=== PATIENT | female | born 1945 | race Caucasian/White ===

== ENCOUNTER 2017-04-23 20:37 | Emergency (ER) | payer OTHER ==
[~2017-04-23] VITALS: Ht 142.2 cm; Wt 40.4 kg
[~2017-04-23 20:37] MED LIST changes: -AEROECLIPSE II1 EACH INH; -ALBU3IS INH; -ALLERGY CREAM30 GM TOP; -CETI5 PO; -GLIP5 PO; -HYDHCL25 PO; -Prednisone20 MG PO; -Zofran Odt4 MG PO
[2017-04-23] MEDS ORDERED: GLIP5 PO (20:57)
[2017-04-23] MEDS ORDERED: METF500 PO (20:58)
[2017-04-23 21:13] LABS: BASOPHILS ABSOLUTE AUTO 0.08 K/mm3 (0.00-0.23); BASOPHILS PERCENT AUTO 1 % (0-2); EOSINOPHILS ABSOLUTE AUTO 0.25 K/mm3 (0.00-0.68); EOSINOPHILS PERCENT AUTO 3 % (0-6); Hematocrit 32.7 % (33.0-51.0); Hemoglobin 10.9 g/dL (11.5-16.0); IMMATURE GRAN ABSOLUTE AUTO 0.05 K/mm3 (0.00-0.10); IMMATURE GRAN PERCENT AUTO 1 % (0-1); LYMPHOCYTES ABSOLUTE AUTO 2.77 K/mm3 (0.84-5.20); LYMPHOCYTES PERCENT AUTO 29 % (21-46); MONOCYTES ABSOLUTE AUTO 0.69 K/mm3 (0.16-1.47); MONOCYTES PERCENT AUTO 7 % (4-13); Mean Corpuscular HGB 31.3 pg (26.0-34.0); Mean Corpuscular HGB Conc 33.3 g/dL (31.5-36.5); Mean Corpuscular Volume 94 fL (80-100); NEUTROPHILS ABSOLUTE AUTO 5.81 K/mm3 (1.96-9.15); NEUTROPHILS PERCENT AUTO 60 % (41-73); RDW Coefficient Variation 13.1 % (11.7-14.2); RDW Standard Deviation 45.1 fL (35.1-46.3); Red Blood Cell Count 3.48 M/mm3 (3.80-5.20); White Blood Cell Count 9.65 K/mm3 (4.00-11.30)
[2017-04-23 21:18] LABS: Mean Platelet Volume 9.6 fL (9.1-12.4); Platelet Count 272 K/mm3 (150-400)
[2017-04-23 21:27] LABS: Alanine Aminotransfer (ALT/SGP 17 U/L (12-78); Albumin, Blood 3.2 g/dL (3.4-5.0); Albumin/Globulin Ratio 0.9 (0.8-1.8); Alk Phos 117 U/L (50-136); Anion Gap 8 mmol/L (6-16); Aspartate Aminotrans (AST/SGOT 10 U/L (12-37); Bilirubin, Total 0.2 mg/dL (0.1-1.0); Blood Urea Nitrogen 16 mg/dL (8-24); Bun/Creatinine Ratio 28.6 (12.0-20.0); CO2, Blood 30 mmol/L (21-32); Calcium, Blood 8.4 mg/dL (8.5-10.1); Chloride, Blood 100 mmol/L (98-108); Creatinine, Blood 0.56 mg/dL (0.40-1.00); Globulin, Blood 3.5 g/dL (2.2-4.0); Glomerular Filtration Rate >60 (60-); Glucose, Blood 333 mg/dL (70-99); Potassium, Blood 3.9 mmol/L (3.5-5.5); Sodium, Blood 138 mmol/L (136-145); Total Protein, Blood 6.7 g/dL (6.4-8.2)
[2017-04-23] MEDS ORDERED: Zofran Odt4 MG PO (22:17)
[2018-01-11] MEDS ORDERED: ALBU3IS INH (23:14)
[2018-01-11] MEDS ORDERED: Prednisone20 MG PO (23:14)
[2018-01-11] MEDS ORDERED: AEROECLIPSE II1 EACH INH (23:14)
== END 2017-04-23 23:01 | disposition home or self-care (01) ==
LOC: ER 20:37
PROVIDERS: Emergency Medicine
DX: R11.2 Nausea with vomiting, unspecified (principal); R19.7 Diarrhea, unspecified; R10.9 Unspecified abdominal pain; E11.40 Type 2 diabetes mellitus with diabetic neuropathy, unspecified; F32.9 Major depressive disorder, single episode, unspecified; J44.9 Chronic obstructive pulmonary disease, unspecified; F17.200 Nicotine dependence, unspecified, uncomplicated; Z88.5 Allergy status to narcotic agent; Z88.8 Allergy status to other drugs, medicaments and biological substances; Z88.0 Allergy status to penicillin; Z79.899 Other long term (current) drug therapy; Z79.84 Long term (current) use of oral hypoglycemic drugs; Z90.49 Acquired absence of other specified parts of digestive tract
CPT/HCPCS: 36415; 74018; 80053; 83690; 85025; 96361; 96374; 99283; J2405; J7030

== ENCOUNTER → 2017-04-23 | Outpatient (CLI) | payer OTHER ==
[~2017-04-23] MED LIST: ACET325 PO; AEROECLIPSE II1 EACH INH; ALBU3IS INH; ALBU90OI INH; ALBU90OI6 INH; ALBU90OI61 INH; ALEN70 PO; ALLERGY CREAM30 GM TOP; AMLO5 PO; AMOX500 PO; ASPI81CH; ASPI81CH PO; ATOR10; AVANDIA 8 MG QD; AZIT250 PO; BISA10S PR; BISM87SU; BISMATROL; BONIVA; Boniva150 MG; CALC1.25T PO; CALCIUM + D3 E1 EACH PO; CEFP200 PO; CEPH500 PO; CETI5 PO; CHOL10002 PO; CIPR500 PO; CITA20 PO; CYCL10 PO; Citrate Of Mag300 ML PO; Cleocin HCl150 MG PO; Combigan Eye Dro5 ML; Combigan Eye Dro5 ML OP; DIPATR PO; DOCU100 PO; Dulcolax5 MG PO; FERR325 PO; FURO20 PO; GABA100 PO; GABA600 PO; GENPREOPSU; GENTEAL; GLIP5 PO; HYDACE5; HYDACE5 PO; HYDHCL25 PO; HYDMETSO; HYDMETSO BOTHEYES; HYDMOR2 PO; HYDR1TAB94 PO; Humalog100 UNIT/1; Humalog100 UNIT/1 SC; INS70/30PN; INSDET100; INSDET100 SC; INSDET100 SQ; INSLI75/25; INSLIS75I; INSN100I; INSU7030P; INSUASPI SC; INSUASPI SS; LAVAP17G PO; LEVAMIR INSULIN SQ; LEVFLO250 PO; LEVFLO500 PO; LISI5 PO; LOPE2C PO; LORA.5 PO; Lisinopril2.5 MG; METF500 PO; METF500C PO; MIRT15 PO; MOM PO; MORP20L PO; Milk Of Ma400 MG/5 M PO; Miralax17 GM PO; NORT10 PO; NORT50; NORT50 PO; Norco 5-325 Ta1 EACH PO; ONDA4ODT MM; ONDA4ODT SL; ONDA8 PO; OXYACE5T PO; OXYC5 PO; PHENA200 PO; POTA8 PO; PRAM.5 PO; PRAV20; PRAV20 PO; PRAV40 PO; PRAVASTATIN SOD10 MG PO; PROC10 PO; Prednisone20 MG PO; ROPI1 PO; RXHYD5325 PO; SENN187 PO; SIMV20; SIMV40 PO; SKIEMOTL12; SPIRIVA RESPIMAT4 GM IH; SULF10OPSA OU; SULTRIDS; SULTRIDS PO; TIMDOROPSO; TOBR.3OPSO OP; TRAACE; TRAM50; TRAV.004OP; Tylenol325 MG PO; VITAMIN D32000 UNIT PO; Ventolin5 MG/1 ML IH; Zofran Odt4 MG PO; Zofran Odt4 MG SL; [UNRECOGNIZED DRUG - OTHER]; [UNRECOGNIZED DRUG - REMARK]
[2017-04-23 12:55] LABS: BASOPHILS ABSOLUTE AUTO 0.09 K/mm3 (0.00-0.23); BASOPHILS PERCENT AUTO 1 % (0-2); EOSINOPHILS ABSOLUTE AUTO 0.34 K/mm3 (0.00-0.68); EOSINOPHILS PERCENT AUTO 3 % (0-6); Hematocrit 35.8 % (33.0-51.0); Hemoglobin 12.1 g/dL (11.5-16.0); IMMATURE GRAN ABSOLUTE AUTO 0.07 K/mm3 (0.00-0.10); IMMATURE GRAN PERCENT AUTO 1 % (0-1); LYMPHOCYTES ABSOLUTE AUTO 3.47 K/mm3 (0.84-5.20); LYMPHOCYTES PERCENT AUTO 30 % (21-46); MONOCYTES ABSOLUTE AUTO 0.71 K/mm3 (0.16-1.47); MONOCYTES PERCENT AUTO 6 % (4-13); Mean Corpuscular HGB 31.5 pg (26.0-34.0); Mean Corpuscular HGB Conc 33.8 g/dL (31.5-36.5); Mean Corpuscular Volume 93 fL (80-100); Mean Platelet Volume 9.7 fL (9.1-12.4); NEUTROPHILS ABSOLUTE AUTO 6.92 K/mm3 (1.96-9.15); NEUTROPHILS PERCENT AUTO 60 % (41-73); Platelet Count 370 K/mm3 (150-400); RDW Coefficient Variation 13.2 % (11.7-14.2); RDW Standard Deviation 45.1 fL (35.1-46.3); Red Blood Cell Count 3.84 M/mm3 (3.80-5.20)
== END | disposition home or self-care (01) ==
LOC: LAB EV 12:47
PROVIDERS: Physician Assistant
DX: R21 Rash and other nonspecific skin eruption (principal)
CPT/HCPCS: 85025

== ENCOUNTER 2017-05-11 00:06 | Emergency (ER) | payer OTHER ==
[~2017-05-11] VITALS: Ht 144.8 cm; Wt 38.1 kg
[~2017-05-11 00:06] MED LIST changes: +GLIP5 PO; +Zofran Odt4 MG PO
[2018-01-11] MEDS ORDERED: Prednisone20 MG PO (23:14)
[2018-01-11] MEDS ORDERED: ALBU3IS INH (23:14)
[2018-01-11] MEDS ORDERED: AEROECLIPSE II1 EACH INH (23:14)
== END 2017-05-11 01:11 | disposition home or self-care (01) ==
LOC: ER 00:06
DX: S50.11XA Contusion of right forearm, initial encounter (principal); I10 Essential (primary) hypertension; E11.42 Type 2 diabetes mellitus with diabetic polyneuropathy; F32.9 Major depressive disorder, single episode, unspecified; R62.50 Unspecified lack of expected normal physiological development in childhood; G25.81 Restless legs syndrome; J44.9 Chronic obstructive pulmonary disease, unspecified; Z98.42 Cataract extraction status, left eye; Z98.41 Cataract extraction status, right eye; Z90.49 Acquired absence of other specified parts of digestive tract; Z88.5 Allergy status to narcotic agent; Z88.0 Allergy status to penicillin; Z88.8 Allergy status to other drugs, medicaments and biological substances; Z79.899 Other long term (current) drug therapy; Z79.4 Long term (current) use of insulin; W22.8XXA Striking against or struck by other objects, initial encounter
CPT/HCPCS: 73080; 73090; 99283

== ENCOUNTER 2017-11-20 10:41 | Emergency (ER) | payer OTHER ==
[~2017-11-20] VITALS: Ht 157.5 cm; Wt 44.5 kg
[2017-11-20 13:01] LABS: BASOPHILS ABSOLUTE AUTO 0.08 K/mm3 (0.00-0.23); BASOPHILS PERCENT AUTO 1 % (0-2); EOSINOPHILS ABSOLUTE AUTO 0.61 K/mm3 (0.00-0.68); EOSINOPHILS PERCENT AUTO 7 % (0-6); Hematocrit 32.5 % (33.0-51.0); Hemoglobin 10.6 g/dL (11.5-16.0); IMMATURE GRAN ABSOLUTE AUTO 0.04 K/mm3 (0.00-0.10); IMMATURE GRAN PERCENT AUTO 0 % (0-1); LYMPHOCYTES PERCENT AUTO 28 % (21-46); MONOCYTES ABSOLUTE AUTO 0.68 K/mm3 (0.16-1.47); MONOCYTES PERCENT AUTO 8 % (4-13); Mean Corpuscular HGB 31.3 pg (26.0-34.0); Mean Corpuscular HGB Conc 32.6 g/dL (31.5-36.5); Mean Corpuscular Volume 96 fL (80-100); Mean Platelet Volume 9.9 fL (9.1-12.4); NEUTROPHILS ABSOLUTE AUTO 5.18 K/mm3 (1.96-9.15); NEUTROPHILS PERCENT AUTO 57 % (41-73); Platelet Count 276 K/mm3 (150-400); RDW Coefficient Variation 13.2 % (11.7-14.2); RDW Standard Deviation 46.7 fL (35.1-46.3); Red Blood Cell Count 3.39 M/mm3 (3.80-5.20); White Blood Cell Count 9.09 K/mm3 (4.00-11.30)
[2017-11-20 13:19] LABS: Alanine Aminotransfer (ALT/SGP 18 U/L (12-78); Albumin, Blood 2.9 g/dL (3.4-5.0); Albumin/Globulin Ratio 0.8 (0.8-1.8); Alk Phos 65 U/L (50-136); Anion Gap 5 mmol/L (6-16); Aspartate Aminotrans (AST/SGOT 16 U/L (12-37); Bilirubin, Total 0.2 mg/dL (0.1-1.0); Blood Urea Nitrogen 13 mg/dL (8-24); Bun/Creatinine Ratio 22.1 (12.0-20.0); CO2, Blood 32 mmol/L (21-32); Calcium, Blood 8.4 mg/dL (8.5-10.1); Chloride, Blood 104 mmol/L (98-108); Creatinine, Blood 0.59 mg/dL (0.40-1.00); Globulin, Blood 3.7 g/dL (2.2-4.0); Glomerular Filtration Rate >60 (60-); Glucose, Blood 102 mg/dL (70-99); Potassium, Blood 4.1 mmol/L (3.5-5.5); Sodium, Blood 141 mmol/L (136-145); Total Protein, Blood 6.6 g/dL (6.4-8.2)
[2017-11-20] MEDS ORDERED: HYDHCL25 PO (14:57)
[2017-11-20] MEDS ORDERED: ALLERGY CREAM30 GM TOP (14:57)
== END 2017-11-20 15:41 | disposition home or self-care (01) ==
LOC: ER 10:41
PROVIDERS: Physician Assistant
DX: S30.810A Abrasion of lower back and pelvis, initial encounter (principal); S80.211A Abrasion, right knee, initial encounter; S70.312A Abrasion, left thigh, initial encounter; L03.317 Cellulitis of buttock; L03.116 Cellulitis of left lower limb; L03.115 Cellulitis of right lower limb; E11.40 Type 2 diabetes mellitus with diabetic neuropathy, unspecified; F32.9 Major depressive disorder, single episode, unspecified; J44.9 Chronic obstructive pulmonary disease, unspecified; Z88.5 Allergy status to narcotic agent; Z88.6 Allergy status to analgesic agent; Z88.0 Allergy status to penicillin; Z88.8 Allergy status to other drugs, medicaments and biological substances; Z79.899 Other long term (current) drug therapy; Z79.51 Long term (current) use of inhaled steroids; Z79.84 Long term (current) use of oral hypoglycemic drugs; Z87.891 Personal history of nicotine dependence; X58.XXXA Exposure to other specified factors, initial encounter
CPT/HCPCS: 36415; 72192; 80053; 83735; 85025; 99284-25

== ENCOUNTER 2017-12-19 18:26 | Emergency (ER) | payer OTHER ==
[~2017-12-19] VITALS: Ht 144.8 cm; Wt 36.6 kg
[~2017-12-19 18:26] MED LIST changes: +ALLERGY CREAM30 GM TOP; +HYDHCL25 PO
[2017-12-19] MEDS ORDERED: CETI5 PO (19:09)
== END 2017-12-19 21:55 | disposition home or self-care (01) ==
LOC: ER 18:26
DX: L25.9 Unspecified contact dermatitis, unspecified cause (principal); Z88.5 Allergy status to narcotic agent; Z88.8 Allergy status to other drugs, medicaments and biological substances; Z88.0 Allergy status to penicillin; Z79.899 Other long term (current) drug therapy; Z79.84 Long term (current) use of oral hypoglycemic drugs; E11.42 Type 2 diabetes mellitus with diabetic polyneuropathy; J44.9 Chronic obstructive pulmonary disease, unspecified; Z87.891 Personal history of nicotine dependence
CPT/HCPCS: 99283

== ENCOUNTER 2018-06-15 17:42 | Emergency (ER) | payer OTHER ==
[~2018-06-15] VITALS: Ht 144.8 cm; Wt 40.8 kg
[~2018-06-15 17:42] MED LIST changes: +AEROECLIPSE II1 EACH INH; +ALBU3IS INH; +CETI5 PO; +Prednisone20 MG PO
== END 2018-06-15 21:37 | disposition home or self-care (01) ==
LOC: ER 17:42
DX: S20.211A Contusion of right front wall of thorax, initial encounter (principal); X50.9XXA Other and unspecified overexertion or strenuous movements or postures, initial encounter; Z88.5 Allergy status to narcotic agent; Z88.8 Allergy status to other drugs, medicaments and biological substances; Z88.0 Allergy status to penicillin; Z79.899 Other long term (current) drug therapy; Z79.84 Long term (current) use of oral hypoglycemic drugs; Z79.52 Long term (current) use of systemic steroids; E11.9 Type 2 diabetes mellitus without complications; F32.9 Major depressive disorder, single episode, unspecified; J44.9 Chronic obstructive pulmonary disease, unspecified; Z87.891 Personal history of nicotine dependence
CPT/HCPCS: 71046; 99283-25

== ENCOUNTER 2018-08-27 22:12 | Emergency (ER) | payer OTHER ==
[~2018-08-27] VITALS: Ht 144.8 cm; Wt 40.8 kg
[~2018-08-27 22:12] MED LIST changes: -Combigan Eye Dro5 ML; +Combigan Eye Dro5 ML RIGHTEYE
[2018-08-27 23:33] LABS: BASOPHILS ABSOLUTE AUTO 0.03 K/mm3 (0.00-0.23); BASOPHILS PERCENT AUTO 0 % (0-2); EOSINOPHILS ABSOLUTE AUTO 0.36 K/mm3 (0.00-0.68); EOSINOPHILS PERCENT AUTO 5 % (0-6); Hematocrit 33.3 % (33.0-51.0); Hemoglobin 10.7 g/dL (11.5-16.0); IMMATURE GRAN ABSOLUTE AUTO 0.04 K/mm3 (0.00-0.10); IMMATURE GRAN PERCENT AUTO 1 % (0-1); LYMPHOCYTES ABSOLUTE AUTO 2.93 K/mm3 (0.84-5.20); LYMPHOCYTES PERCENT AUTO 39 % (21-46); MONOCYTES ABSOLUTE AUTO 0.61 K/mm3 (0.16-1.47); MONOCYTES PERCENT AUTO 8 % (4-13); Mean Corpuscular HGB 31.4 pg (26.0-34.0); Mean Corpuscular HGB Conc 32.1 g/dL (31.5-36.5); Mean Corpuscular Volume 98 fL (80-100); Mean Platelet Volume 9.6 fL (9.1-12.4); NEUTROPHILS ABSOLUTE AUTO 3.65 K/mm3 (1.96-9.15); NEUTROPHILS PERCENT AUTO 48 % (41-73); Platelet Count 252 K/mm3 (150-400); RDW Coefficient Variation 13.3 % (11.7-14.2); RDW Standard Deviation 47.3 fL (35.1-46.3); Red Blood Cell Count 3.41 M/mm3 (3.80-5.20); White Blood Cell Count 7.62 K/mm3 (4.00-11.30)
[2018-08-27 23:51] LABS: Alanine Aminotransfer (ALT/SGP 24 U/L (12-78); Albumin, Blood 3.4 g/dL (3.4-5.0); Alk Phos 80 U/L (50-136); Anion Gap 5 mmol/L (6-16); Aspartate Aminotrans (AST/SGOT 15 U/L (12-37); Bilirubin, Total 0.1 mg/dL (0.1-1.0); Blood Urea Nitrogen 15 mg/dL (8-24); Bun/Creatinine Ratio 22.2 (12.0-20.0); CO2, Blood 32 mmol/L (21-32); Calcium, Blood 8.6 mg/dL (8.5-10.1); Chloride, Blood 106 mmol/L (98-108); Creatinine, Blood 0.68 mg/dL (0.40-1.00); Globulin, Blood 3.3 g/dL (2.2-4.0); Glomerular Filtration Rate >60 (60-); Glucose, Blood 141 mg/dL (70-99); Potassium, Blood 4.4 mmol/L (3.5-5.5); Sodium, Blood 143 mmol/L (136-145); Total Protein, Blood 6.7 g/dL (6.4-8.2)
[2018-08-27 23:52] LABS: Source, Urine Catheter
[2018-08-27 23:55] LABS: Bilirubin, Urine Neg (Neg); Blood, Urine Neg (Neg); Glucose Qualitative, Urine Neg (Neg); Ketones, Urine Neg (Neg); Leukocyte Esterase, Urine Neg (Neg); Nitrite, Urine Neg (Neg); Protein, Urine Neg (Neg); Urobilinogen, Urine NORM (Normal)
[2018-08-28 00:03] LABS: Appearance, Urine Clear (Clear); Color, Urine Yellow (P-Yellow)
[2018-08-28] MEDS ORDERED: Glipizide ER5 MG PO (01:09)
[2018-08-28] MEDS ORDERED: Metformin HCl750 MG PO (01:11)
[2018-08-28] MEDS ORDERED: Refresh Eye Dr1 EACH RIGHTEYE (01:12)
[2018-08-28] MEDS ORDERED: Docusate Sodiu1 EACH PO (01:13)
[2018-08-28] MEDS ORDERED: ERYT1OIN LEFTEYE (01:16)
[2018-08-28] MEDS ORDERED: TRIA15CR3 TOP (01:18)
[2018-08-28] MEDS ORDERED: ALBU3IS INH (01:20)
[2018-08-28] MEDS ORDERED: BISA10S PR (01:21)
[2018-08-28] MEDS ORDERED: HYDMOR2 PO (01:22)
[2018-08-28] MEDS ORDERED: Narcan 0.40.4 MG/ML INH (01:23)
[2018-08-28] MEDS ORDERED: ONDA4ODT MM (01:24)
[2018-08-28] MEDS ORDERED: Magnesium Citr296 ML PO (01:29)
== END 2018-08-28 02:16 | disposition home or self-care (01) ==
LOC: ER 22:12
PROVIDERS: Emergency Medicine
DX: K59.00 Constipation, unspecified (principal); Z88.5 Allergy status to narcotic agent; Z88.8 Allergy status to other drugs, medicaments and biological substances; Z88.0 Allergy status to penicillin; Z79.899 Other long term (current) drug therapy; Z79.52 Long term (current) use of systemic steroids; Z79.84 Long term (current) use of oral hypoglycemic drugs; E11.42 Type 2 diabetes mellitus with diabetic polyneuropathy; F32.9 Major depressive disorder, single episode, unspecified; Z87.891 Personal history of nicotine dependence
CPT/HCPCS: 36415; 71046; 74176; 80053; 81003; 85025; 99284-25

== ENCOUNTER 2019-04-28 22:19 | Emergency (ER) | payer OTHER ==
[~2019-04-28] VITALS: Ht 142.2 cm; Wt 34.0 kg
[~2019-04-28 22:19] MED LIST changes: +Docusate Sodiu1 EACH PO; +ERYT1OIN LEFTEYE; +Glipizide ER5 MG PO; +Magnesium Citr296 ML PO; +Metformin HCl750 MG PO; +Narcan 0.40.4 MG/ML INH; +Refresh Eye Dr1 EACH RIGHTEYE; +TRIA15CR3 TOP
[2019-04-29 00:27] LABS: BASOPHILS ABSOLUTE AUTO 0.06 K/mm3 (0.00-0.23); BASOPHILS PERCENT AUTO 1 % (0-2); EOSINOPHILS ABSOLUTE AUTO 0.36 K/mm3 (0.00-0.68); EOSINOPHILS PERCENT AUTO 3 % (0-6); Hematocrit 31.4 % (33.0-51.0); Hemoglobin 10.3 g/dL (11.5-16.0); IMMATURE GRAN ABSOLUTE AUTO 0.04 K/mm3 (0.00-0.10); IMMATURE GRAN PERCENT AUTO 0 % (0-1); LYMPHOCYTES PERCENT AUTO 29 % (21-46); MONOCYTES ABSOLUTE AUTO 0.79 K/mm3 (0.16-1.47); MONOCYTES PERCENT AUTO 8 % (4-13); Mean Corpuscular HGB 30.9 pg (26.0-34.0); Mean Corpuscular HGB Conc 32.8 g/dL (31.5-36.5); Mean Corpuscular Volume 94 fL (80-100); Mean Platelet Volume 9.7 fL (9.1-12.4); NEUTROPHILS ABSOLUTE AUTO 6.22 K/mm3 (1.96-9.15); NEUTROPHILS PERCENT AUTO 59 % (41-73); Platelet Count 290 K/mm3 (150-400); RDW Coefficient Variation 13.5 % (11.7-14.2); RDW Standard Deviation 46.8 fL (35.1-46.3); Red Blood Cell Count 3.33 M/mm3 (3.80-5.20); White Blood Cell Count 10.57 K/mm3 (4.00-11.30)
[2019-04-29 00:43] LABS: Alanine Aminotransfer (ALT/SGP 18 U/L (12-78); Albumin, Blood 3.3 g/dL (3.4-5.0); Alk Phos 70 U/L (50-136); Anion Gap 4 mmol/L (6-16); Aspartate Aminotrans (AST/SGOT 17 U/L (12-37); Bilirubin, Total 0.2 mg/dL (0.1-1.0); Blood Urea Nitrogen 8 mg/dL (8-24); Bun/Creatinine Ratio 13.8 (12.0-20.0); CO2, Blood 29 mmol/L (21-32); Calcium, Blood 8.5 mg/dL (8.5-10.1); Chloride, Blood 108 mmol/L (98-108); Creatinine, Blood 0.58 mg/dL (0.40-1.00); Globulin, Blood 3.4 g/dL (2.2-4.0); Glomerular Filtration Rate >60 (60-); Glucose, Blood 137 mg/dL (70-99); Potassium, Blood 4.2 mmol/L (3.5-5.5); Sodium, Blood 141 mmol/L (136-145); Total Protein, Blood 6.7 g/dL (6.4-8.2)
[2019-04-29] MEDS ORDERED: Cleocin HCl300 MG PO (02:03)
== END 2019-04-29 03:11 | disposition home or self-care (01) ==
LOC: ER 22:19
PROVIDERS: Emergency Medicine
DX: K11.20 Sialoadenitis, unspecified (principal); E11.42 Type 2 diabetes mellitus with diabetic polyneuropathy; F32.9 Major depressive disorder, single episode, unspecified; Z88.5 Allergy status to narcotic agent; Z88.1 Allergy status to other antibiotic agents; Z88.8 Allergy status to other drugs, medicaments and biological substances; Z79.899 Other long term (current) drug therapy; Z79.84 Long term (current) use of oral hypoglycemic drugs; Z79.51 Long term (current) use of inhaled steroids; Z87.891 Personal history of nicotine dependence
CPT/HCPCS: 36415; 70487; 80053; 85025; 96360; 99284-25; J7030; Q9967

== ENCOUNTER → 2019-09-22 | Outpatient (CLI) | payer OTHER ==
[~2019-09-22] MED LIST changes: +Cleocin HCl300 MG PO
[2019-09-22 17:39] LABS: Adenovirus F 40/41 Not Detected (NOT DETECT); Astrovirus Not Detected (NOT DETECT); Campylobacter Sp Not Detected (NOT DETECT); Cryptosporidium Not Detected (NOT DETECT); Cyclospora Cayetanensis Not Detected (NOT DETECT); E. Coli O157 Not Detected (NOT DETECT); Entamoeba Histolytica Not Detected (NOT DETECT); Enteroaggregative E. coli-EAEC Not Detected (NOT DETECT); Enteropathogenic E. coli-EPEC Not Detected (NOT DETECT); Enterotoxigenic E. coli-ETEC Not Detected (NOT DETECT); Giardia Lamblia Not Detected (NOT DETECT); Norovirus GI/GII Not Detected (NOT DETECT); Plesiomonas Shigelloides Not Detected (NOT DETECT); Rotavirus A Not Detected (NOT DETECT); Salmonella Sp Not Detected (NOT DETECT); Sapovirus Not Detected (NOT DETECT); Shiga Toxin-prod E. coli-STEC Not Detected (NOT DETECT); Shigella/Enteroin E. coli-EIEC Not Detected (NOT DETECT); Vibrio Cholerae Not Detected (NOT DETECT); Vibrio Sp Not Detected (NOT DETECT); Yersinia Enterocolitica Not Detected (NOT DETECT)
== END | disposition home or self-care (01) ==
LOC: LAB SHORT 13:30 → OLS 13:30
PROVIDERS: Family Medicine
DX: R19.7 Diarrhea, unspecified (principal)
CPT/HCPCS: 0097U

== ENCOUNTER 2020-01-14 21:27 | Emergency (ER) | payer OTHER ==
[~2020-01-14] VITALS: Ht 144.8 cm; Wt 34.5 kg
== END 2020-01-14 23:30 | disposition home or self-care (01) ==
LOC: ER 21:27
DX: M25.532 Pain in left wrist (principal); Z79.899 Other long term (current) drug therapy; Z79.84 Long term (current) use of oral hypoglycemic drugs
CPT/HCPCS: 73100; 99283-25; A9270

== ENCOUNTER 2020-06-21 18:55 | Emergency (ER) | payer OTHER ==
[~2020-06-21] VITALS: Ht 144.8 cm; Wt 69.8 kg
[2020-06-21] MEDS ORDERED: AMLO5 PO (20:41)
[2020-06-21] MEDS ORDERED: CITA20 PO (20:41)
[2020-06-21] MEDS ORDERED: COMBIGAN 0.2%-0.5 ML RIGHTEYE (20:42)
[2020-06-21] MEDS ORDERED: GLIP5ER PO (20:43)
[2020-06-21] MEDS ORDERED: HYDMOR2 PO (20:44)
[2020-06-21] MEDS ORDERED: LEVSOD25 PO (20:44)
[2020-06-21] MEDS ORDERED: MIRALAX17 G6 PO (20:45)
[2020-06-21] MEDS ORDERED: MIRT15 PO (20:45)
[2020-06-21] MEDS ORDERED: Glucophage Xr750 MG PO (20:45)
[2020-06-21] MEDS ORDERED: ROPI1 PO (20:45)
[2020-06-21] MEDS ORDERED: DOCUZEN 8.6-501 EACH PO (20:46)
[2020-06-21] MEDS ORDERED: THERA-D2000 UNIT PO (20:46)
[2020-06-21] MEDS ORDERED: ERYT.5TO LEFTEYE (20:47)
== END 2020-06-22 00:26 ==
LOC: ER 18:55
DX: S92.352A Displaced fracture of fifth metatarsal bone, left foot, initial encounter for closed fracture (principal); E11.40 Type 2 diabetes mellitus with diabetic neuropathy, unspecified; E11.42 Type 2 diabetes mellitus with diabetic polyneuropathy; F03.90 Unspecified dementia, unspecified severity, without behavioral disturbance, psychotic disturbance, mood disturbance, and anxiety; Z79.899 Other long term (current) drug therapy; Z88.5 Allergy status to narcotic agent; Z88.0 Allergy status to penicillin; Z87.442 Personal history of urinary calculi; Z87.891 Personal history of nicotine dependence; X58.XXXA Exposure to other specified factors, initial encounter
CPT/HCPCS: 73660; 99283-25

== ENCOUNTER 2021-03-04 21:29 | Emergency (ER) | payer OTHER ==
[~2021-03-04] VITALS: Ht 142.2 cm; Wt 40.8 kg
[~2021-03-04 21:29] MED LIST changes: +COMBIGAN 0.2%-0.5 ML RIGHTEYE; +DOCUZEN 8.6-501 EACH PO; +ERYT.5TO LEFTEYE; +GLIP5ER PO; +Glucophage Xr750 MG PO; +LEVSOD25 PO; +MIRALAX17 G6 PO; +THERA-D2000 UNIT PO
[2021-03-04] MEDS ORDERED: AMLODIPINE BES2.5 MG PO (22:35)
== END 2021-03-04 23:35 | disposition home or self-care (01) ==
LOC: ER 21:29
DX: G89.29 Other chronic pain (principal); Z88.5 Allergy status to narcotic agent; Z88.8 Allergy status to other drugs, medicaments and biological substances; Z79.899 Other long term (current) drug therapy; Z79.84 Long term (current) use of oral hypoglycemic drugs; E11.42 Type 2 diabetes mellitus with diabetic polyneuropathy; J44.9 Chronic obstructive pulmonary disease, unspecified; Z87.891 Personal history of nicotine dependence
CPT/HCPCS: 99283